=== PATIENT | female | born 1975 | race African-American/Black ===

== ENCOUNTER 2022-07-10 15:41 | Emergency (ER) | payer OTHER ==
[2022-07-10 16:03] VITALS: BP 124/91; PULSE 100; RESP 20; TEMP 98.4; BMI 31.7
[2022-07-10] MEDS ORDERED: ACETAMINOPHEN 500 MG TABLET (FP) PO ONE (16:41)
[2022-07-10] MEDS ORDERED: CYCLOBENZAPRINE HCL 10 MG TABLET (FP) PO ONE (16:41)
[2022-07-10] MEDS ORDERED: IBUPROFEN 600 MG TABLET (FP) PO ONE ×2 (16:41→16:51)
[2022-07-10] MEDS ORDERED: CYCLOBENZAPRINE HCL 10 MG TABLET (FP) ONE (16:51)
[2022-07-10] MEDS ORDERED: ACETAMINOPHEN 500 MG TABLET (FP) ONE (16:52)
== END 2022-07-10 17:56 | disposition home or self-care (01) ==
LOC: JERFT 15:41
DX: M25.561 Pain in right knee (principal); M54.89 Other dorsalgia; V49.40XA Driver injured in collision with unspecified motor vehicles in traffic accident, initial encounter
CPT/HCPCS: 73560-TC-RT-FY; 99284-25

== ENCOUNTER 2023-10-20 08:27 | Emergency (ER) | payer OTHER ==
[2023-10-20 08:43] VITALS: TEMP 98; BMI 29.1
[2023-10-20 09:30] LABS: HEMATOCRIT 41.7 % (32.4-45.2); HEMOGLOBIN 14.2 GM/dL (10.7-15.3); MCH 29.8 pg (25.7-33.7); MEAN CELL VOLUME 87.5 fl (80-96); MEAN PLT VOLUME 8.7 fl (7.5-11.1); PLATELET COUNT 213 10^3/uL (134-434); RBC 4.76 M/mm3 (3.60-5.2); RDW 14.1 % (11.6-15.6); WHITE BLOOD COUNT 4.6 K/mm3 (4.0-10.0)
[2023-10-20 09:42] LABS: INR 1.05 (0.83-1.09); PROTHROMBIN TIME (PATIENT) 11.8 SEC (9.7-13.0)
[2023-10-20 09:45] LABS: ACTIVATED PTT 30.3 SECONDS (25.2-36.5)
[2023-10-20] MEDS ORDERED: ACETAMINOPHEN 325 MG TABLET (FP) ONE (09:48)
[2023-10-20] MEDS: ACETAMINOPHEN 325 MG TABLET (FP) PO ONE (09:50)
[2023-10-20 09:58] LABS: POTASSIUM 3.2 mmol/L (3.5-5.1)
[2023-10-20 10:00] LABS: CALCIUM 9.8 mg/dL (8.5-10.1)
[2023-10-20 10:01] LABS: ALBUMIN 3.9 g/dl (3.4-5.0); BLOOD UREA NITROGEN 15.6 mg/dL (7-18)
[2023-10-20 10:06] LABS: BILIRUBIN,TOTAL 0.9 mg/dL (0.2-1)
[2023-10-20 10:09] LABS: N-TERMINAL BNP 6.1 pg/ml (5-125)
[2023-10-20 10:22] LABS: ANISOCYTOSIS 1+; MACROCYTOSIS 0
[2023-10-20 12:03] VITALS: BP 109/71; PULSE 93; RESP 20
== END 2023-10-20 18:30 | disposition home or self-care (01) ==
LOC: JER 08:27
DX: R07.2 Precordial pain (principal); R06.02 Shortness of breath; R20.2 Paresthesia of skin; R00.0 Tachycardia, unspecified
CPT/HCPCS: 36415; 71045-TC-FY; 71275-TC; 80053; 83880; 84439; 84443; 84484; 85025; 85610; 85730; 86850; 86900; 86901; 93005; 93010; 99285-25